=== PATIENT | female | born 1960 | race Caucasian/White ===

== ENCOUNTER 2021-12-08 13:35 | Emergency (ER) | payer MEDICARE, SELFPAY ==
[2021-12-08 13:40] VITALS: BP 135/88; PULSE 106; RESP 18; TEMP 36.8; O2SAT 96; BMI 38.7
--- NOTE | 2021-12-08 13:45 | ECG_ITS ---
Test Reason : sob Blood Pressure : / mmHG Vent. Rate : 104 BPM Atrial Rate : 104 BPM P-R Int : 164 ms QRS Dur : 092 ms QT Int : 372 ms P-R-T Axes : 042 007 058 degrees QTc Int : 489 ms Sinus tachycardia Possible Left atrial enlargement Nonspecific T wave abnormality Abnormal ECG No previous ECGs available Referred By: Generic ED Physician Electronically Signed By:BIANCA LAIRD
[2021-12-08 14:14] LABS: MANUAL DIFF FLAG NO
[2021-12-08 14:17] LABS: Basophils Absolute Auto 0.1 X10*3/uL (0.0-0.2); Basophils Percent Auto 0.7 % (0-2); Eosinophils Absolute Auto 0.1 X10*3/uL (0.0-0.4); Eosinophils Percent Auto 1.4 % (0-4); Hematocrit 39.2 % (37.0-47.0); Hemoglobin 11.9 g/dl (12.0-16.0); Imm Gran Abs Auto 0.05 X10*3/uL (0.00-0.03); Imm Gran Pct Auto 0.5 % (0.0-0.4); Lymphocytes Absolute Auto 2.1 X10*3/uL (1.2-4.9); Lymphocytes Percent Auto 21.1 % (20-40); Mean Corpuscular HGB Conc 30.4 g/dl (31.0-35.0); Mean Corpuscular Hemoglobin 26.3 pg (27.0-33.0); Mean Corpuscular Volume 86.5 fL (80.0-98.0); Mean Platelet Volume 10.2 fL (9.4-12.3); Monocytes Absolute Auto 0.7 X10*3/uL (0.1-1.2); Neutrophils Absolute Auto 6.8 x10*3/uL (2.0-8.3); Neutrophils Percent Auto 69.3 % (45-73); Platelet Count 362 X10*3/uL (160-400); Red Blood Count 4.53 X10*6/uL (4.20-5.50); Red Cell Distribution Width 15.7 % (11.0-16.0); White Blood Count 9.8 X10*3/uL (4.8-10.8)
[2021-12-08 14:32] LABS: Anion Gap 18 (12-20); Blood Urea Nitrogen 16 mg/dL (9-16); Calcium 10.2 mg/dL (8.4-10.2); Carbon Dioxide 21 mmol/L (22-29); Chloride 108 mmol/L (96-108); Estimated Glomerular Filt Rate 56; Glucose Random 118 mg/dL (60-115); Potassium 4.4 mmol/L (3.3-5.1); Sodium 143 mmol/L (135-145)
== END 2021-12-08 21:17 | disposition left against medical advice (07) ==
PROVIDERS: Emergency Provider Emergency Medicine
DX: R06.02 Shortness of breath (principal); I50.9 Heart failure, unspecified; R60.9 Edema, unspecified; R44.3 Hallucinations, unspecified
CPT/HCPCS: 36415; 80048; 85025; 93005; 99281; 99283

== ENCOUNTER 2025-02-15 13:48 | Outpatient (AMB) | payer MEDICARE, MEDICAID, SELFPAY ==
[2025-02-15 13:50] VITALS: BMI 36.2
--- NOTE | 2025-02-15 13:50 | A.PHYSOV_ITS ---
Vital Signs 02/15/25 13:50 Height 5 ft 10 in Weight 252 lb BMI 36.2 Intake Visit Reasons: 3M FUV Intake Note: Patient is a 64 year old female in office today for her 3 month medication management visit. Allergies acetaminophen Allergy (Unknown, Verified 02/15/25 13:53) Unknown duloxetine Allergy (Unknown, Verified 02/15/25 13:57) Unknown ibuprofen Allergy (Unknown, Verified 02/15/25 13:53) Unknown sacubitril (From Entresto) Allergy (Unknown, Verified 02/15/25 13:57) Unknown valsartan (From Entresto) Allergy (Unknown, Verified 02/15/25 13:57) Unknown HPI Comments Details: History of Present Illness The patient is a 64 year old female presenting for a follow-up visit for chronic pain management. She has a diagnosis of fibromyalgia with chronic pain involving her entire body and is also diagnosed with severe congestive heart failure (CHF), for which she has had multiple hospitalizations. Her last visit was on November 07, 2024, and she follows up every 3 months per her contract. Regarding her cardiac status, the patient reports her ejection fraction has improved to 55-60%, which is in the normal range. She is being followed by a new primary care physician. For management of her conditions, the patient is on a contract for lorazepam use for anxiety and also takes it for muscle spasms. Her prescription for lorazepam was up to three times a day, but she is attempting to use it twice a day due to fatigue, though she notes she still experiences spasms on this regimen. She also uses CBD gummies. Pain Description - Location: Patient reports chronic pain involving her entire body. - Associated Symptoms: The patient experiences muscle spasms. - Functional Interference: Pain interferes with her sleep, causing her to be up for half the night. Results - Tests and Diagnostics: The patient reports a recent ejection fraction of 55-6 0%, which is within the normal range. [facility] Medical History (Updated 02/15/25 @ 14:06 by Alexandre Avila DO) Fibromyalgia Surgical History (Updated 02/10/25 @ 13:47 by Shaina Greer MA) H/O: hysterectomy History of cholecystectomy Social History (Updated 02/15/25 @ 13:54 by Shaina Greer MA) Alcohol intake: current Alcohol intake frequency: does not drink Patient Tobacco Use Status: Current everyday Tobacco user Current occupational status: disabled Review of Systems Narrative Review of Systems - Constitutional: Denies fever or chills. - Gastrointestinal: Denies any change in bowel habits. - Genitourinary: Denies any change in urinary habits. - Musculoskeletal: Reports muscle spasms. - Neurological: Reports difficulty sleeping due to pain. Physical Exam Exam Exam: Physical Exam - General: Appears in acute distress; obese. - Gait: Waddling gait without antalgia is noted on ambulation. - Musculoskeletal: Diffuse myofascial tenderness with palpation; lumbar extension is restricted; cervical range of motion is preserved. - Neurological: Upper motor neuron signs are present; examination is nonfocal. Vital Signs: BMI result Body Mass Index 36.2 Assessment & Plan Assessment & Plan (1) Fibromyalgia: Code(s): M79.7 - Fibromyalgia Category: Medical Plan Pain Management - Analgesia: The patient reports lorazepam is the only medication that helps her muscle spasms and is currently taking it twice daily, though she was prescribed it for up to three times a day. - She also uses CBD gummies. - Affect: The patient is contracted for lorazepam use for anxiety. - Adverse Effects: The patient reports feeling tired all the time from her medications. - Activities of Daily Living: Her pain interferes with her sleep. - Aberrant Drug-Related Behaviors: The patient is on a contract for lorazepam, and her prescription monitoring report was previously reviewed. Plan Patient was informed and verbally consented to the use of an ambient scribe for clinic note documentation during this visit. 1. Fibromyalgia The patient's chronic pain and muscle spasms associated with fibromyalgia are stable on her current regimen. She has been attempting to take lorazepam twice daily instead of three times daily to minimize fatigue but notes continued spasms. The prescription monitoring report will be reviewed. A refill for her lorazepam will be provided. She will follow up in 3 months. 2. Severe Congestive Heart Failure The patient reports her severe congestive heart failure has improved, with her ejection fraction now in the normal range of 55-60%. She has established care with a new primary care physician who will continue to manage this condition. No changes to her pain management plan will be made based on her cardiac status. Discussion Notes I discussed the patient's ongoing management for chronic pain, specifically her use of lorazepam. We reviewed her attempt to decrease her dose from three times a day to twice a day and her report of continued spasms. I informed her that her option to return to the gooid-pdvhi-b-day dose remains available if needed. I confirmed that I will check her prescription monitoring report and send in a re fill for her lorazepam. We clarified that for subsequent refills, she will need to contact the pharmacy directly. I advised her to follow up in this office in 3 months. Patient Instructions - Continue your current medication regimen. - You may continue trying to take lorazepam twice a day, but you have the option to increase it back to three times a day if your muscle spasms worsen. - I am sending in a refill for your lorazepam prescription now. - For future refills after this one, you will need to call the pharmacy. - Continue to see your new primary care doctor for your heart condition. - Please schedule a follow-up appointment here in 3 months. Medications: New lorazepam 1 mg PO TID PRN 84 tabs 0RF anxiety and muscle spasm 28 days M79.7 - Fibromyalgia Coding Level of Care Code Est Pt Level 3 (61813) Add On Problem Visit Only Diagnoses Fibromyalgia M79.7
--- OUTSIDE RECORDS SUMMARY | 2025-02-15 21:06 | XMS_ITS | Encounter Summary ---
Author Organization [facility] Address [address] [place] [address] Care Team Providers Care Chief Procurement Officer Name Role Phone Coni Jose MD Primary Care Provider [phone] Encounter Details Date Type Department Care Team (Late st Contact Info) Description 01/25/2025 Results [facility]-Up [facility] [address] [facility] [place] [phone] Coni Jose MD [address] [facility] [place] Social History Tobacco Use Types Packs/Day Years Used Date Smoking Tobacco: Every Day Cigarettes Smokeless Tobacco: Never Comments:One PPD Alcohol Use Standard Drinks/Week Comments Not Currently 0 (1 standard drink = 0.6 oz pur e alcohol) Comments Unknown Sex and Gender Information Value Date Recorded Sex Assigned at Not on file Legal Sex Female 1:50 AM EST Gender Identity Not on file Sexual Orientation Not on file documented as of this encounter Progress Notes * Coni Jose MD - 02/05/2025 2:18 PM EST Ref for home health services placed * Coni Jose MD - 01/25/2025 5:47 PM EST LETTER SENT WITH RESULTS AND RECOMMENDATIONS * Coni Jose MD - 01/25/2025 5:43 PM EST Please call patient Her cholesterol profile is better than the previous. She does have prediabetes I suggest starting metformin for both blood sugars and her triglycerides.. Patient needs to let me know if I can send a prescription for metformin documented in this encounter Plan of Treatment Upcoming Encounters Date Type Department Care Team (Late st Contact Info) Description 04/09/2025 11:30 AM EST [facility] [address] [place] [phone] Coni Jose MD [address] [facility] [place] 06/27/2025 1:00 PM EDT [facility] [address] [place] [phone] Coni Jose MD [address] [facility] [place] documented as of this encounter Visit Diagnoses Not on filedocumented in this encounter Care Teams Chief Procurement Officer Relationship Specialty Start Date End Date Coni Jose MD [facility] [place] PCP - General Internal Medicine 07/18/24 documented as of this encounter
--- OUTSIDE RECORDS SUMMARY | 2025-02-15 21:06 | XMS_ITS | Clinical Summary ---
Author Organization [facility] [employer] [facility] Address [address] [facility] [place] [address] Phone Care Team Providers Care Yarn Texture Machine Operator Name Role Phone Coni Jose MD Primary Care Provider [phone] Allergies Active Allergy Reactions Criticality Noted Date Comments Acetaminophen 01/23/2022 Duloxetine 01/23/2022 Duloxetine Hcl 01/23/2022 Esomeprazole 11/24/2022 vomiting Ibuprofen 01/23/2022 Pantoprazole 11/24/2022 [place] burning in the stomach Medications ascorbic acid (VITAMIN C ORAL) Take by mouth daily. Active VITAMIN B COMPLEX ORAL Active medical marijuana MANAGER STATE med Active FA/mv,Ca,iron,m in/lycopene/lut (MULTIVITAL ORAL) Take by mouth. Activ e NUTRITIONAL SUPPLEMENTS ORAL NUTRITIONAL SUPPLEMENTS (VITAMIN D BOOSTER OR) Take by mouth. Active zinc sulfate (ZINCATE) 220 mg (50 mg elemental zinc) capsule Take by mouth. Activ e aspirin 325 mg tablet Take 1 tablet (325 mg total) by mouth every 6 (six) hours if needed for moderate pain. Active famotidine (PEPCID) 10 mg tablet Take 1 Tablet by mouth 2 times daily. Active LORazepam (ATIVAN) 1 mg tablet Take 1 Tablet by mouth 2 Times Daily. Active metoprolol succinate (TOPROL-XL) 50 mg 24 hr tablet Take 1.5 Tablets by mouth daily. 06/30/19 24 Active sacubitriL-vals marilyn (Entresto) 24-26 mg per tablet Take 1 Tablet by mouth 2 times daily. Active vibegron (GEMTESA ORAL) Take by mouth. Active PARoxetine (PAXIL) 10 mg tablet TAKE 1 TABLET(10 MG) BY MOUTH DAILY IN THE MORNING 90 tablet 1 10/24/19 25 Active Farxiga 10 mg tablet TAKE 1 TABLET BY MOUTH DAILY 90 tablet 3 11/02/19 25 Active spironolactone (ALDACTONE) 25 mg tablet TAKE 1 TABLET BY MOUTH DAILY 90 tablet 1 01/27/20 25 Active spironolactone (ALDACTONE) 25 mg tablet TAKE 1 TABLET BY MOUTH DAILY 90 tablet 1 07/19/19 25 025 Discontinued Active Problems Problem Noted Date Diagnosed Date Chronic systolic (congestive) heart failure 08/07 Generalized anxiety disorder 08/31/2024 Low serum vitamin D 08/31/2024 Morbid obesity 08/31/2024 Type 2 diabetes mellitus 08/31/2024 IPMN (intraductal papillary mucinous neoplasm) 0 07/28/2022 Kidney lesion 07/28/2022 Anxiety 05/22/2022 Cigarette smoker 05/22/2022 Overview (02/01/2024): Last Assessment & Plan: The patient continues to smoke on a daily basis and expresses the desire to quit. She refused smoking aids at this time. Assessment & Plan (05/03/2024 5:11 PM EST): The patient continues to smoke every day. She was counseled regarding the importance of of quitting smoking. We discussed the adverse long-term effects of smoking including the risk of developing cancer, a CVA or an OR. At the end of the conversation, the patient stated that she will try to cut down her smoking. Urge incontinence 05/22/2022 Sleep apnea 04/25/2022 Overview (02/01/2024): cpap Abdominal spasms 04/23/2022 Fibromyalgia 04/23/2022 Obesity (BMI 30-39.9) 04/23/2022 Hypertension 01/26/2022 Overview (02/01/2024): Last Assessment & Plan: Patient's blood pressure is acceptable. No changes to GDMT. She will continue current therapies. Assessment & Plan (07/24/2024 2:25 PM EDT): Blood pressure is well-controlled today, continue on current medication regimen. I have reviewed with the patient the importance of a heart healthy lifestyle which includes eating a low-fat low-salt diet, getting regular exercise, maintaining a healthy weight, not smoking, and following up with routine medical care. Assessment & Plan (05/03/2024 5:11 PM EST): The patient has a history of arterial hypertension. The patient's blood pressure today was noted to be well controlled. We'll continue the current antihypertensive medication regimen. Cardiomyopathy 01/23/2022 Heart failure with reduced ejection fraction Overview (02/01/2024): Last Assessment & Plan: HFrEF-EF 30 to 35%, ACC/AHA stage C with NYHA class II-III symptoms. Last echocardiogram: May 2023. Last ischemic evaluation: left heart catheterization June 2022. GDMT Betablocker: Metoprolol 75 mg orally daily JESUS Inhibitor-JULIANN/ARB/ARNI: Entresto 24-26 mg twice daily Diuretic: None Aldosterone antagonist: Spironolactone 25 mg orally daily SGLT2 inhibitors: Farxiga 10 mg orally daily The patient is a candidate for an ICD given her LVEF. She has already been evaluated by electrophysiology service regarding the possibility of ICD multiple times in the past. Multiple discussions have been had and the patient has not yet committed to the ICD procedure. Most recently, she was seen by advanced heart failure clinic at [facility] cardiology June 2023 where it was determined that she would benefit from a repeat echocardiogram to be completed in October and follow-up appointment 2 weeks after echocardiogram with Dr. Aburto to determine patient's heart function and consideration for ICD. The patient understands the fact that her cardiomyopathy places her at increased risk for a ventricular arrhythmia which could be fatal and we discussed the role of ICD and treating these arrhythmias. After shared decision-making, the patient would like to continue her plans to follow with advanced heart failure regarding the decision of ICD. Assessment & Plan (07/24/2024 2:25 PM EDT): HFrEF-EF 40 to 45% Last echocardiogram was in October 2023. Last ischemic evaluation was in June 2022 with a left heart catheterization. GDMT Betablocker: Metoprolol succinate 75 mg daily JESUS Inhibitor-JULIANN/ARB/ARNI: Entresto 24-26 mg twice daily Aldosterone antagonist: Spironolactone 25 mg daily SGLT2 inhibitors: Farxiga 10 mg daily ICD: Not indicated Patient reports recent weight loss, as well as improvement in her lower extremity swelling. It is mild and nonpitting on exam today. She does not appear to be volume overloaded. She will continue on her medications as prescribed. We will update an echocardiogram to reassess her EF. She reports she has an upcoming follow-up as well with heart failure specialist Dr. Aburto. I've asked the patient to call if they develop worsening symptoms of heart failure such as increased shortness of breath, new or worsening cough, increased swelling in the legs or ankles, or weight gain of more than 2 pounds in one day or 4 pounds in one week. Orders: perflutren lipid microsphere (DEFINITY) 1.3 mL in sodium chloride 0.9% 8.7 mL injection Transthoracic echocardiogram (TTE) complete with PRN contrast, bubble, strain, and 3D order panel; Future Assessment & Plan (05/03/2024 5:11 PM EST): The patient has heart failure with reduced ejection fraction. Etiology: Nonischemic Last ischemic work-up: Left heart cath from June 2022 Nonischemic cardiomyopathy evaluation: 1. Cardiac MRI did not show evidence of an infiltrative cardiomyopathy or hypertrophic cardiomyopathy. 2. Genetic testing did not show any pathologic genetic variant to suggest a genetic cardiomyopathy Last documented LVEF: 40 to 45% on echocardiogram in October 2023 Current symptom classification: NYHA class 2 Guideline directed medical therapy: 1. Beta-blockers: Toprol 75 mg orally daily 2. ARNI / JULIANN inhibitor / ARB: Entresto 24/26 mg orally twice daily 3. MRA: Spironolactone 25 mg orally daily 4. SGL2 inhibitor: Farxiga 10 mg orally daily Advanced heart failure specialist: Dr. Aburto ([facility]) Candidate for ICD or SURGERY TECH: Not a candidate due to the LVEF Plan of care: 1. Continue current medication regimen. Orders: Comprehensive metabolic panel; Future Lipid panel; Future Portal vein thrombosis 01/23/2022 Overview (02/01/2024): Last Assessment & Plan: The patient has a history of portal vein thrombosis. This was diagnosed at [facility] in December 2021. She was evaluated by the [facility] vascular surgery service. The patient has been on chronic anticoagulation therapy with Eliquis since December 2021. SVT (supraventricular tachycardia) 01/23/2022 Overview (02/01/2024): Last Assessment & Plan: Patient had 1 episode of supraventricular tachycardia during hospitalization. It was suspected that this was related to her decompensation. She is now on a beta- minh. We will continue to monitor. Fatty liver 07/23/2016 MDD (major depressive disorder) 07/23/2016 Osteopenia 07/23/2016 Overview (08/31/2024): DEXA 12/29/2012 Encounters Date Type Department Care Team Description 02/05/2025 1:00 PM EST Office Visit [facility] [address] [place], [place] [address]ial [place], [place] [phone] Coni Jose MD Primary hypertension (Primary Dx); Cardiomyopathy, unspecified type (CMS/HCC V24, CMS/HCC V28); Obesity (BMI 30-39.9); Fibromyalgia; Generalized anxiety disorder; Cigarette smoker; Morbid obesity (CMS/HCC V24, CMS/HCC V28); Portal vein thrombosis; Snoring; Prediabetes; Vitamin D deficiency, unspecified; Overactive bladder 01/25/2025 Results Follow-Up Internal Medicine - [facility] [address] [place], [place] [address], [place] [phone] Coni Jose MD 01/24/2025 11:55 AM EST Lab Draw Station - [address] [address] Type 2 diabetes mellitus without complication, without long-term current use of insulin (CMS/HCC V24, CMS/HCC V28) 12/18/2024 Telephone [facility] [address] [place] [address] Mayi Carvajal NP from Last 3 Months Surgical History Surgery Date Site/Laterality Comments HYSTERECTOMY PROCEDURE: HISTORICAL HYSTERECTOMY CHOLECYSTECTOMY PROCEDURE: HISTORICAL CHOLECYSTECTOMY TONSILLECTOMY Bilateral PROCEDURE: HISTORICAL TONSILLECTOMY APPENDECTOMY PROCEDURE: [place] APPENDECTOMY Medical History Medical History Date Comments Covid-19 DX:COVID-19 Obstructive sleep apnea DX:Obstr uctive sleep apnea Anxiety DX:Anxiety Depression DX:Depression Fibromyalgia DX:Fibromyalgia Morbid obesity (CMS/HCC V24, CMS/HCC V28) DX:Morbid obesity (HCC); COMMENT: BMI >35 Type 2 diabetes mellitus (CM S/HCC V24, [facility]/HCC V28) DX:Type 2 diabetes mellitus (HCC) LALA (acute kidney injury) (CMS/HCC V24) DX:LALA (acute kidney injury) (HCC) Elevated liver enzymes DX:Elevat ed liver enzymes Portal vein thrombosis DX:Portal vein thrombosis Hepatic steatosis DX:Hepatic tina atosis History of IBS DX:History of IB S Low serum vitamin D DX:Low serum vitamin D Major depression DX:Major depres jamila ERIN (obstructive sleep apnea) DX :ERIN (obstructive sleep apnea) Osteopenia DX:Osteopenia Transaminitis DX:Transaminitis Hyperammonemia ([facility] V24) DX: Hyperammonemia (HCC) Mixed incontinence DX:Mixed inco ntinence Overactive bladder DX:Overactive bladder; COMMENT: [facility] urology Family History Medical History Relation Name Comments Coronary artery disease Other Fami ly Hx Relation Name Status Comments Other Social History Tobacco Use Types Packs/Day Years Used Date Smoking Tobacco: Every Day Cigarettes Smokeless Tobacco: Never Tobacco Cessation:Ready to Q uit: No; Counseling Given: No Comments:One PPD Alcohol Use Standard Drinks/Week Comments Not Currently 0 (1 standard drink = 0.6 oz pur e alcohol) Financial Risk Answer Date Recorded How hard is it for you to pa y for the very basics like food, housing, medical care, and air conditioning / heating? Very hard 02/05/2025 Living Situation Answer Date Recorded What is your living situation? Unrecognized valu e 02/05/2025 Comments Unknown Sex and Gender Information Value Date Recorded Sex Assigned at Not on file Legal Sex Female 1:50 AM EST Gender Identity Not on file Sexual Orientation Not on file Last Filed Vital Signs Vital Sign Reading Time Taken Comments Blood Pressure 124/80 02/05/2025 1:05 PM EST aut o Pulse 72 02/05/2025 1:05 PM EST Temperature - - Respiratory Rate - - Oxygen Saturation 95% 07/24/2024 1:36 PM EDT Inhaled Oxygen Concentration - - Weight 112 kg (246 lb 6.4 oz) 02/05/2025 1:05 PM EST Height 177.8 cm (5' 10 ) 02/05/2025 1:05 PM EST Body Mass Index 35.35 02/05/2025 1:05 PM EST Plan of Treatment Upcoming Encounters Date Type Department Care Team (Late st Contact Info) Description 04/09/2025 11:30 AM EST Office Visit Internal Medicine - [address] [phone] Coni Jose MD [address] [place] [address] 06/27/2025 1:00 PM EDT Office Visit Internal Medicine - [address] [phone] Coni Jose MD [address] [place] [address] Health Maintenance Due Date Last Done Comments Breast Cancer Screening 1960 Colorectal Cancer Screening: Colonoscopy 1960 Diabetes: Annual Foot Exam 1970 Diabetes: Annual Retina Eye Exam 1970 DTaP,Tdap,and Td Vaccines (1 - Tdap) 09/13/1979 Hepatitis A Vaccines (1 of 2 - Risk 2-dose series) 09/13/1979 Pneumococcal Vaccine: 50+ Years (1 of 2 - PCV) 09/13/1979 Cervical Cancer Screening: P ap Smear 1981 RSV Immunization Adult Patients (1 - Risk 50-74 years 1-dose series) 2010 Zoster Vaccines (1 of 2) 2010 Hepatitis B Vaccines (1 of 3 - Risk 3-dose series) 2020 HIV Screening 02/19/2022 Hepatitis C Screening 02/19/2022 Lung Cancer Screening (Low Dose CT) 02/19/2022 Medicare Annual Wellness Visit 02/19/2022 COVID-19 Vaccine (2024-2 6 season) 2024 Influenza Vaccine (#1) 2024 Diabetes: Annual GFR (Glomerular Filtration Rate) 03/28/2025 03/28/2024, 12/17/2023, 12/17/2023 Hypertension/CHF/CAD Annual BMP Blood Test 03/28/2025 03/28/2024, 12/17/2023, 12/17/2023 Diabetes: Blood Sugar Contro l Test (HGBA1C) 07/24/2025 01/24/2025 Diabetes: Annual Urine Albumin-Creatinine Ratio (uACR) 01/24/2026 01/24/2025 Social Influencers of Health Screening 02/05/2026 02/05/2025 Cholesterol Screening (Lipid Panel) 01/24/2030 01/24/2025, 03/28/2024 Depression Screening Completed 02/05/2025 HIB Vaccines Aged Out No longer eligi ble based on patient's age to complete this topic HPV Vaccines Aged Out No longer eligi ble based on patient's age to complete this topic IPV Vaccines Aged Out No longer eligi ble based on patient's age to complete this topic MMR Vaccines Aged Out No longer eligi ble based on patient's age to complete this topic Meningococcal ACWY Vaccine Aged Out N o longer eligible based on patient's age to complete this topic Meningococcal B Vaccine Aged Out No l onger eligible based on patient's age to complete this topic RSV Immunization Patients Under 20 months Aged Out No longer eligible b ased on patient's age to complete this topic Varicella Vaccines Aged Out No longer eligible based on patient's age to complete this topic Procedures Procedure Name Priority Date/Time Associated Diagnosis Comments MICROALBUMIN CREATININE URINE RATIO Routine 01/24/2025 12:02 PM EST Type 2 diabetes mellitus without complication, without long-term current use of insulin ([facility] V24, [facility] V28) LIPID PANEL WITH REFLEX TO DIRECT LDL Routine 01/24/2025 11:56 AM EST Type 2 diabetes mellitus without complication, without long-term current use of insulin ([facility] V24, CMS/[facility] V28) HEMOGLOBIN A1C Routine 01/24/2025 11:56 AM EST Type 2 diabetes mellitus without complication, without long-term current use of insulin ([facility] V24, [facility] V28) COMPREHENSIVE METABOLIC PANEL Routine 03/28/2024 2:51 PM EST Heart failure with reduced ejection fraction ([facility] V24, [facility] V28) from Last 3 Months or Most Recently Relevant to Health Maintenance Results * Microalbumin creatinine urine ratio (01/24/2025 12:02 PM EST) Creatinine, Urine 163.0 mg/dL 01/24/2025 2:57 PM EST [facility] Microalb, Ur <3.0 0.0 - 29.0 mg/L 01/24/2025 2:57 PM EST [facility] Microalb/Creat Ratio <2 <30 mg/g creat 01/24/2025 2:57 PM [facility] Urine Urine specimen obtained by clean catch procedure / Unknown Non-blood Collection / Unknown 01/24/2025 12:02 PM EST 01/24/2025 12:02 PM EST us Coni Jose MD LAB URINE ORDERABLES Final Res ult [facility] [address] [place] [address], * (ABNORMAL) Lipid panel with reflex to direct LDL (01/24/2025 11:56 AM EST) Cholesterol 198 0 - 200 mg/dL 01/24/2025 2:50 PM [facility] Triglycerides 209(H) 0 - 150 mg/dL 01/24/2025 2:50 PM [facility] HDL 41 >=40 mg/dL 01/24/2025 2:50 PM [facility] LDL Calculated 115(H) 0 - 100 mg/dL 01/24/2025 2:50 PM EST [facility] Comment:Estimated LDL Calcul ated using equation: Total cholesterol - HDL cholesterol - (Triglycerides/5) VLDL Cholesterol Jacob 41.8 mg/dL 01/24/2025 2:50 PM EST [facility] Non HDL Chol. (LDL+VLDL) 157(H) <145 mg/dL 01/24/2025 2:50 PM EST [facility] Chol/HDL Ratio 4.8(H) 0.0 - 4.4 01/24/2025 2:50 PM [facility] Blood Venous blood specimen / Unknown Venipuncture / Unknown 01/24/2025 11:56 AM EST 01/24/2025 11:56 AM EST Coni Jose MD LAB BLOOD ORDERABLES Final Res ult Performing Organization Address City/[facility]/ZIP Co de Phone Number [facility] [address] [place] [address], [place] [phone] * Hemoglobin A1c (01/24/2025 11:56 AM EST) Hemoglobin A1C 6.1 <6.5 % LAB CHEMISTRY METHOD 01/24/2025 2:39 PM EST [facility] Mean Bld Glu Estim. 128 mg/dL LAB CHEMISTRY METHOD 01/24/2025 2:39 PM EST [facility] Blood Venous blood specimen / Unknown Venipuncture / Unknown 01/24/2025 11:56 AM EST 01/24/2025 11:56 AM EST us Coni Jose MD LAB BLOOD ORDERABLES Final Res ult Performing Organization Address City/[facility]/ZIP Co de Phone Number [facility] [address] [place] [address], [place] [phone] * (ABNORMAL) Comprehensive metabolic panel (03/28/2024 2:51 PM EST) Glucose 116(H) 70 - 99 mg/dL [facility] Blood Urea Nitrogen (BUN) 13 8 - 27 mg/dL [facility] Creatinine 0.79 0.57 - 1.00 mg/dL [facility] 1 eGFR 84 >59 mL/min/1. 73 [facility] 1 BUN/Creatinine Ratio 16 12 - 28 [facility] 1 Sodium 143 134 - 144 mmol/L [facility] 1 Potassium 4.7 3.5 - 5.2 mmol/L [facility] 1 Chloride 108(H) 96 - 106 mmol/L [facility] 1 Carbon Dioxide 23 20 - 29 mmol/L [facility] 1 Calcium 10.0 8.7 - 10.3 mg/dL [facility] Protein Total 6.9 6.0 - 8.5 g/dL [facility] 1 Albumin 4.7 3.9 - 4.9 g/dL [facility] 1 Globulin Total 2.2 1.5 - 4.5 g/dL [facility] 1 Bilirubin Total 0.3 0.0 - 1.2 mg/dL [facility] 1 Alkaline Phosphatase 91 44 - 121 IU/L [facility] 1 Aspartate aminotransferase (AST) 21 0 - 40 IU/L [facility] 1 Alanine Aminotransferase (ALT) 19 0 - 32 IU/L [facility] 1 Blood Venous blood specimen / Unknown 03/28/2024 2:51 PM EST 03/28/2024 Narrative [facility] 1 - 03/29/2024 7:06 AM EST Performed at: 01 - [facility] [address] [id number] Boiler Coverer Helper: Bushra Perry MD, Phone: [phone] us Mauricio Kinney MD LAB BLOOD ORDERABLES F inal Result [facility] 1 from Last 3 Months or Most Recently Relevant to Health Maintenance Insurance [place]ICAID - [place] [employer] MEDICARE Advance Directives Documents on File Type Date Recorded Patient Healthcare Management Expl anation Health Care Decision (hx) 01/08/2022 AD PARADA DIRECTIVE Health Care Decision (hx) 01/08/2022 AD PARADA DIRECTIVE Care Teams Yarn Texture Machine Operator Relationship Specialty Start Date End Date Coni Jose MD [address] [facility] [place] PCP - General Internal Medicine 07/18/24
--- OUTSIDE RECORDS SUMMARY | 2025-02-15 21:06 | XMS_ITS | Clinical Summary ---
Author Organization [facility] Prior to 08/05/[address] [place] [address] Care Team Providers Care Maintenance Services Dispatcher Name Role Phone Gisela Wynn MD Primary Care Provider [phone] Allergies Active Allergy Reactions Criticality Noted Date Comments Acetaminophen 11/05/2022 Duloxetine Hcl 11/05/2022 Duloxetine 11/05/2022 Sacubitril-Valsartan 11/05/2022 Ibuprofen 11/05/2022 Medications Medication Sig Dispensed Refills Start Date End Date Status carvedilol (COREG) 3.125 MG tablet Take 2 tablets (6.25 mg total) by mouth 2 (two) times a day with meals. 0 Active bismuth subsalicylate (PEPTO BISMOL) 262 MG/15ML suspension Take 15 mL by mouth every 6 (six) hours as needed for indigestion. 0 Active Multiple Vitamins-Minerals (MULTIVITAL PO) Take by mouth. 0 Activ e B Complex Vitamins (VITAMIN B COMPLEX 100 IJ) Inject as directed. 0 Active ascorbic acid (VITAMIN C) 500 MG tablet Take 1 tablet (500 mg total) by mouth daily. 0 Active zinc sulfate (ZINCATE) 220 (50 Zn) MG capsule Take 1 capsule (220 mg total) by mouth daily. 0 Active Nutritional Supplements (VITAMIN D BOOSTER PO) Take by mouth. 0 Active spironolactone (ALDACTONE) tablet 25 mg Take 1 tablet (25 mg total) by mouth daily. 0 Active dapagliflozin (Farxiga) 10 MG tablet Take 1 tablet (10 mg total) by mouth daily. 0 Active aspirin 325 MG tablet Take 1 tablet (325 mg total) by mouth as needed for pain. 0 Active furosemide (LASIX) 20 MG tablet Take 1 tablet (20 mg total) by mouth daily. 0 Active lisinopril (PRINIVIL,ZESTRIL) tablet 2.5 mg Take 1 tablet (2.5 mg total) by mouth daily. 0 Active famotidine (PEPCID) 10 MG tablet Take 1 tablet (10 mg total) by mouth 2 (two) times a day. 0 Active LORazepam (ATIVAN) 1 MG tablet Take 1 tablet (1 mg total) by mouth every 6 (six) hours as needed. 0 Active PARoxetine (PAXIL) 10 MG tablet Take 0.5 mg by mouth daily. 0 Active vitamin D3 (cholecalciferol) 25 MCG (1000 UT) tablet Take 1 tablet (25 mcg total) by mouth daily. 0 Active Active Problems No known active problems Family History Medical History Relation Name Comments Cancer Father Cancer Mother Cancer Sister Relation Name Status Comments Father Mother Sister Social History Tobacco Use Types Packs/Day Years Used Date Smoking Tobacco: Every Day Cigarettes Smokeless Tobacco: Never Tobacco Cessation:Ready to Q uit: Not Asked; Counseling Given: Not Answered Alcohol Use Standard Drinks/Week Comments Never 0 (1 standard drink = 0.6 oz pur e alcohol) Sex and Gender Information Value Date Recorded Sex Assigned at Not on file Gender Identity Not on file Sexual Orientation Not on file Job Start Date Occupation Industry Not on file Not on file Not on file Last Filed Vital Signs Vital Sign Reading Time Taken Comments Blood Pressure 127/90 11/06/2022 2:21 PM EDT Pulse 77 11/06/2022 2:21 PM EDT Temperature 36.5 C (97.7 F) 11/06/2022 2:21 PM EDT Respiratory Rate - - Oxygen Saturation 95% 11/06/2022 2:21 PM EDT Inhaled Oxygen Concentration - - Weight 111.9 kg (246 lb 9.6 oz) 11/06/2022 2:21 PM EDT Height 177.8 cm (5' 10 ) 11/06/2022 2:21 PM EDT Body Mass Index 35.38 11/06/2022 2:21 PM EDT Plan of Treatment Health Maintenance Due Date Last Done Comments Hepatitis C Screening 1960 COVID-19 Vaccine (#1) 03/15/1961 Pneumococcal Vaccine (1 of 2 - PCV) 1966 Pneumococcal Vaccine (1 of 2 - PCV) 1966 Depression Screening 1972 Preventative Health Evaluation 1978 DTap / Tdap / Td (1 - Tdap) 09/13/1979 Cervical Cancer Screening (P ap Smear) 1981 Colon Cancer Screening (Colonoscopy) 2005 Breast Cancer Screening (Mammogram) 2010 Shingrix-Zoster Vaccine (1 of 2) 2010 Influenza Vaccine (#1) 2024 RSV Adult > 60+ Yrs or Pregn ant (1 - 1-dose 75+ series) 09/13/2035 Hepatitis B Vaccines Aged Out No long er eligible based on patient's age to complete this topic RSV Ped < 20 months Aged Out No longe r eligible based on patient's age to complete this topic Care Teams Maintenance Services Dispatcher Relationship Specialty Start Date End Date Gisela Wynn MD [address] [place] [address] [place] [id number] PCP - General Internal Medicine 08/27/22
== END 2025-02-15 14:04 | disposition home or self-care (01) ==
LOC: HO.HPHYS 13:48
PROVIDERS: Visit Provider Physical Medicine & Rehabilitation
DX: M79.7 Fibromyalgia (principal)
CPT/HCPCS: 99213; G2211

== ENCOUNTER → 2025-02-15 13:48 | Outpatient (BNVA) | payer MEDICARE, MEDICAID, SELFPAY | PROVIDERS: Visit Provider Physical Medicine & Rehabilitation | DX: M79.7 Fibromyalgia (principal); I50.9 Heart failure, unspecified | CPT/HCPCS: 99212 ==